=== PATIENT | male | born 1985 | race Caucasian/White ===

== ENCOUNTER 2017-07-12 15:13 | Emergency (ER) | payer OTHER, MEDICAID ==
--- NOTE | 2017-07-12 15:41 | EDPHY ---
H & P Smoking Status: Former smoker Time Seen by Provider: 07/12/17 15:14 HPI/ROS: CHIEF COMPLAINT: HISTORY OF PRESENT ILLNESS: The patient is a 31-year-old male on an M1 hold for suicidal ideation. The patient has a history of depression and has attempted suicide in the past. Patient has overdosed twice. The first time was in 2000 using Prozac and alcohol. He attempted again with Seroquel and alcohol. He was admitted to [facility] for treatment. He "stopped everything" from [id number]. In April of 2016 the patient began drinking heavily. He was arrested in February 2017. Since 03/02/17 he has been seeing psychiatrist and therapist. 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 The patient is compliant with his psych medications. Last week the patient had a bad day. He called the crisis center 07/06 and felt better. However, he states he continues to have suicidal thoughts. This morning he woke up with determination to follow through with his suicide plan. His plan is to leave his car running in his storage unit. He called the crisis center and saw his therapist today. His therapist placed him on an M1 hold. REVIEW OF SYSTEMS: A comprehensive 10 point review of systems is otherwise negative aside from elements mentioned in the history of present illness. (Chelle Cheatham) Past Medical/Surgical History: Depression (Chelle Cheatham) Social History: No drug use. No alcohol use. (Chelle Cheatham) Physical Exam: General Appearance: Alert, pleasant Eyes: Pupils equal and round, no conjunctival pallor or injection ENT, Mouth: Mucous membranes moist Neck: Normal inspection Respiratory: Lungs are clear to auscultation Cardiovascular: Regular rate and rhythm Gastrointestinal: Abdomen is soft and non-tender Neurological: A&O, nonfocal, normal gait Skin: Warm and dry, no rash Extremities: Nontender, no pedal edema Psychiatric: Mood and affect normal (Chelle Cheatham) Constitutional: Initial Vital Signs Temperature (C) 36.7 C 07/12/17 15:13 Heart Rate 85 07/12/17 15:13 Respiratory Rate 16 07/12/17 15:13 Blood Pressure 112/73 07/12/17 15:13 O2 Sat (%) 95 07/12/17 15:13 O2 Delivery Mode Room Air Allergies/Adverse Reactions: No Known Allergies Allergy (Unverified 05/26/12 15:05) Home Medications: Medication Instructions Recorded Benztropine Mesylate 1 mg PO BID 07/12/17 Lurasidone HCl [Latuda] 80 mg PO HS 07/12/17 hydrOXYzine HCL [Vistaril] 50 mg PO BID 07/12/17 lamoTRIgine [LamICTAL 100 MG (*)] 50 mg PO DAILY 07/12/17 Acetaminophen [Tylenol 325mg (*)] 325 mg PO DAILY PRN 07/13/17 Ibuprofen [Motrin (*)] 200 mg PO DAILY PRN 07/13/17 Medical Decision Making ED Course/Re-evaluation: Patient with history of depression presents with suicidal ideation. He tells me he has a suicide plan. Patient sees a therapist and is compliant with his psych medications. No illicit drug or alcohol use. Plan for mental health evaluation. The patient was evaluated by [facility]. The patient will be placed at ATU. (Chelle Cheatham) I took over care of this patient at 11:00 p.m.. The patient is on an M1 hold for suicidal ideation. The patient is to be admitted. Destination for admission is pending at this time. 7:00 a.m., this patient's remaining emergency department course under my care has been uneventful. The patient still awaits psychiatric admission. Care turned over to Dr. Israel Mahan at this time. (Angela Zurita) Other Provider: 2:15 p.m. the patient has been accepted at [facility] by Dr. Ross. Transfer paperwork completed (Israel Mahan) - Data Points Laboratory Results: Laboratory Results 07/12/17 16:18 07/12/17 16:18 Medications Given: Discontinued Medications Benztropine Mesylate (Cogentin) 1 mg PO EDNOW ONE Stop: 07/12/17 21:01 Last Admin: 07/12/17 22:19 Dose: 1 mg Hydroxyzine HCl (Hydroxyzine Hcl) 50 mg PO HS ONE Stop: 07/12/17 21:01 Last Admin: 07/12/17 22:20 Dose: 50 mg Hydroxyzine HCl (Hydroxyzine Hcl) 50 mg PO BID ABILIO Stop: 01/09/18 10:29 Last Admin: 07/13/17 10:36 Dose: 50 mg Ibuprofen (Motrin) 600 mg PO EDNOW ONE Stop: 07/13/17 04:42 Last Admin: 07/13/17 04:49 Dose: 600 mg Lamotrigine (Lamictal) 50 mg PO DAILY ABILIO Stop: 01/09/18 10:29 Last Admin: 07/13/17 10:37 Dose: 50 mg Lurasidone HCl (Latuda) 80 mg PO HS ONE Stop: 07/13/17 21:01 Last Admin: 07/12/17 22:21 Dose: 80 mg Departure - Departure Disposition: Other Psych, Not [facility] Clinical Impression: Suicidal ideation Depression Qualifiers: Depression Type: unspecified Qualified Code(s): F32.9 - Major depressive disorder, single episode, unspecified Condition: Fair Referrals: Patient,NotPresent [Unknown] - As per Instructions Report Scribed for: Chelle Cheatham Report Scribed by: Aylin Naqvi Date of Report: 07/12/17 Time of Report: 15:41 Physician Review and Approval Statement: 07/12/17 15:41 Portions of this note were transcribed by a medical supply technician. I personally performed the history, physical exam, and medical decision-making; and confirmed the accuracy of the information in the transcribed note. (Chelle Cheatham)
[2017-07-12 16:25] LABS: % IMMATURE GRANULYOCYTES 0.3 % (0.0-1.1); ABSOLUTE IMMATURE GRANULOCYTES 0.03 10^3/uL (0.00-0.10); ADD DIFF? NO; ADD MORPH? NO; ADD SCAN? NO; ATYPICAL LYMPHOCYTE FLAG 0 (0-99); FRAGMENT RBC FLAG 0 (0-99); HEMATOCRIT 48.5 % (40.0-51.0); HEMOGLOBIN 16.8 g/dL (13.7-17.5); LEFT SHIFT FLG 0 (0-99); LIPEMIA HEMOLYSIS FLAG 90 (0-99); MEAN CELL HEMOGLOBIN 31.4 pg (27.9-34.1); MEAN CELL HEMOGLOBIN CONCENTR. 34.6 g/dL (32.4-36.7); MEAN CELL VOLUME 90.7 fL (81.5-99.8); MEAN PLATELET VOLUME 9.8 fL (8.7-11.7); PLATELET CLUMPS FLAG 0 (0-99); PLATELET COUNT 270 10^3/uL (150-400); RED BLOOD CELL COUNT 5.35 10^6/uL (4.40-6.38); RED CELL DISTRIBUTION WIDTH 12.8 % (11.5-15.2)
[2017-07-12 16:51] LABS: ANION GAP 15 mEq/L (8-16); CALCIUM 10.1 mg/dL (8.5-10.4); CARBON DIOXIDE 19 mEq/l (22-31); CHLORIDE 107 mEq/L (97-110); CREATININE 1.4 mg/dL (0.7-1.3); ETHANOL SERUM < 10 mg/dL (0-10); GLOMERULAR FILTRATION RATE 59; GLUCOSE 87 mg/dL (70-100); POTASSIUM 4.4 mEq/L (3.5-5.2); SODIUM 141 mEq/L (134-144)
[2017-07-12] MEDS ORDERED: hydrOXYzine HCL 50 MG TAB PO ONE (21:00)
[2017-07-12] MEDS ORDERED: BENZTROPINE MESYLATE 1 MG TAB PO ONE (21:00)
[2017-07-12] MEDS: LURASIDONE HCL 20 MG TAB PO ONE ×2 (22:20→22:21)
[2017-07-13] MEDS ORDERED: IBUPROFEN 600 MG TAB PO ONE (04:41)
[2017-07-13 08:26] VITALS: PULSE 70; RESP 16
[2017-07-13] MEDS ORDERED: lamoTRIgine 100 MG TAB PO SCH (10:30)
[2017-07-13] MEDS: hydrOXYzine HCL 50 MG TAB PO SCH (10:36)
[2017-07-13 15:25] VITALS: BP 110/60; TEMP 97.9; O2SAT 95
== END 2017-07-13 15:22 ==
LOC: EDUNIT# → EEVIPCON 15:13
DX: R45.851 Suicidal ideations (principal); F32.9 Major depressive disorder, single episode, unspecified; Z87.891 Personal history of nicotine dependence
CPT/HCPCS: 80305; G0480